=== PATIENT | male | born 1970 | race Caucasian/White ===

== ENCOUNTER → 2017-01-30 | Outpatient (CLI) | payer OTHER ==
[~2017-01-30] MED LIST: PRLSR20 PO; [UNRECOGNIZED DRUG - CODE] PO
--- NOTE | 2017-01-30 11:55 | DIAGNOSTIC IMAGING REPORT ---
RIGHT TIBIA AND FIBULA 2 VIEWS CLINICAL HISTORY: Right lower leg pain. FINDINGS: AP and lateral views of the right tibia and fibula are obtained. No prior studies are available for comparison at the time of dictation. The skeletal structures are well mineralized. No fracture is seen. The knee and ankle joints are grossly maintained. Mild soft tissue induration is suggested in the distal lateral calf. IMPRESSION: 1. No acute or healing fracture is seen in the right tibia or fibula. 2. Mild soft tissue induration is suspected in the distal aspect of the lateral calf. Clinical correlation will be required. Electronically signed by: Lacho Hilario M.D. 01/30/2017 11:54 AM Dictated Date/Time: 01/30/2017 11:52 AM
== END | disposition home or self-care (01) ==
LOC: C.RAD1850 11:25
PROVIDERS: ATTEND Preventive Medicine Occupational Medicine
DX: S80.11XA Contusion of right lower leg, initial encounter (principal); X58.XXXA Exposure to other specified factors, initial encounter